=== PATIENT | female | born 1970 | race Two or more races ===

== ENCOUNTER 2018-03-06 12:16 | Emergency (ER) | payer OTHER ==
[~2018-03-06] VITALS: Ht 165.1 cm; Wt 108.0 kg
[2018-03-06 12:30] VITALS: BP 146/91
== END 2018-03-06 14:25 | disposition home or self-care (01) ==
LOC: ED 13:11
DX: M25.562 Pain in left knee (principal)
CPT/HCPCS: 99284

== ENCOUNTER 2020-05-20 16:06 | Emergency (ER) | payer BC, OTHER ==
[~2020-05-20] VITALS: Ht 165.1 cm; Wt 105.1 kg
[2020-05-20] MEDS ORDERED: LIDOCAINE-MPF 1%, 5ML ONE (17:05)
[2020-05-20 18:16] VITALS: BP 124/74
== END 2020-05-20 18:17 | disposition home or self-care (01) ==
LOC: ED 18:11
DX: J34.0 Abscess, furuncle and carbuncle of nose (principal)
CPT/HCPCS: 10060; 99281; 99282; 99283